=== PATIENT | male | born 2000 | race Caucasian/White ===

== ENCOUNTER 2018-11-19 14:08 | Emergency (ER) | payer MEDICAID, OTHER ==
[~2018-11-19] VITALS: Ht 182.9 cm; Wt 103.4 kg
[2018-11-19 14:43] LABS: BASOPHILS % (AUTO) 0.4 % (0-1); CLARITY,URINE CLEAR (Clear); COLOR,URINE YELLOW (Yellow); EOSINOPHILS % (AUTO) 0.3 % (0-6); GLUCOSE, URINE NEGATIVE (Neg); HEMATOCRIT 46.6 % (42.0-52.0); HEMOGLOBIN 15.7 g/dl (14.0-17.9); KETONES,URINE 15 mg/dl (Neg); LEUKOCYTE ESTERASE ,URINE NEGATIVE (Neg); LYMPHOCYTES # (AUTO) 1.1 X10'3 (1.1-4.8); LYMPHOCYTES % (AUTO) 17.8 % (21-51); MEAN CORPUSCULAR HEMOGLOBIN 31.2 PG (27.0-31.0); MEAN CORPUSCULAR HGB CONC 33.8 g/dL (33.0-36.5); MEAN CORPUSCULAR VOLUME 92.5 FL (78-98); MEAN PLATELET VOLUME 8.9 FL (7.4-10.4); MONOCYTES # (AUTO) 0.3 X10'3 (0-0.9); NEUTROPHILS # (AUTO) 4.7 X10'3 (1.8-7.7); NEUTROPHILS % (AUTO) 76.5 % (42-75); NITRITES, URINE NEGATIVE (Neg); OCCULT BLOOD,URINE NEGATIVE (Neg); PH,URINE 5.5 (4.8-8.0); PLATELET COUNT 276 X10'3 (140-440); PROTEIN,URINE TRACE mg/dl (Neg); RED BLOOD COUNT 5.03 X10'6 (4.70-6.10); RED CELL DISTRIBUTION WIDTH 14.2 % (11.5-14.5); UROBILINOGEN,URINE 0.2 E.U/dL (0.2-1.0); WHITE BLOOD COUNT 6.2 X10'3 (4.5-11.0)
[2018-11-19] MEDS ORDERED: ondansetron 4mg rapidly disintigrating tab PO ONE (14:50)
[2018-11-19 14:53] LABS: UA COLLECTION TYPE CLN CATCH MIDSTREAM
[2018-11-19 14:54] LABS: RBC,URINE NONE SEEN /HPF (0-2)
[2018-11-19 14:55] LABS: AMORPHOUS URATES 2+; BACTERIA,URINE FEW /HPF (Neg); MUCUS STRANDS FEW /LPF (Neg); SQUAMOUS EPITHELIAL CELL,UR FEW /LPF (FEW); WBC,URINE 0-4 /HPF (0-4)
[2018-11-19 14:57] LABS: ALANINE AMINOTRANSFERASE 50 U/L (12-78); ALBUMIN 4.5 G/DL (3.4-5.0); ALBUMIN/GLOBULIN RATIO 1.1 (1.1-1.5); ALKALINE PHOSPHATASE 78 IU/L (20-180); ANION GAP 11 (8-16); ASPARTATE AMINO TRANSFERASE 49 U/L (10-37); BILIRUBIN,TOTAL 0.6 MG/DL (0.1-1.0); BLOOD UREA NITROGEN 23 MG/DL (7-18); CHLORIDE 106 MMOL/L (99-107); CREATININE 0.96 MG/DL (0.60-1.10); GLUCOSE 91 MG/DL (70-104); SODIUM 141 MMOL/L (135-145); TOTAL CARBON DIOXIDE 24.5 MMOL/L (24-32); TOTAL PROTEIN 8.5 G/DL (6.4-8.2); eGFR > 90 ML/MIN
[2018-11-19] MEDS ORDERED: normal saline 1000ML IV soln IVB ONE (15:10)
--- NOTE | 2018-11-19 15:24 | NUR ---
PO CHALLENGE APPROX 500 CC WATER PT KEPT IT DOWN STATES IT WAS GOOD NO C/O NAUSEA
[2018-11-19 15:56] VITALS: BP 110/75
== END 2018-11-19 16:10 | disposition home or self-care (01) ==
LOC: EDBD 14:10 → ER 14:10
DX: R10.9 Unspecified abdominal pain (principal); R11.2 Nausea with vomiting, unspecified; R19.7 Diarrhea, unspecified; R82.4 Acetonuria
CPT/HCPCS: 36415; 80053; 81001; 85025; 85610; 96360; 99283; J2405; J7030

== ENCOUNTER 2021-06-03 07:38 | Emergency (ER) | payer MEDICAID ==
[~2021-06-03] VITALS: Ht 185.4 cm; Wt 118.2 kg
[2021-06-03] MEDS ORDERED: diphenhydrAMINE 50 mg/ml inj IV ONE (08:05)
[2021-06-03] MEDS ORDERED: valproate sod inj 1,000 MG in normal saline 50ml IV soln 50 ML IV ONE (08:05)
[2021-06-03] MEDS ORDERED: proCHLORperazine 10 MG/2 ml inj IV ONE (08:05)
[2021-06-03] MEDS ORDERED: diazepam inj 5 MG/ML inj. IV ONE ×2 (10:05→10:45)
[2021-06-03] MEDS ORDERED: ketorolac trometh. 30mg/ml inj. IV ONE (10:05)
[2021-06-03 11:18] VITALS: BP 111/76
== END 2021-06-03 11:29 | disposition home or self-care (01) ==
LOC: ER 07:39
DX: G43.909 Migraine, unspecified, not intractable, without status migrainosus (principal)
CPT/HCPCS: 70450; 96365; 96366; 96375; 96376; 99284; J0780; J1200; J1885; J3360; J3490